=== PATIENT | male | born 1960 | race Caucasian/White ===

== ENCOUNTER 2019-09-01 16:42 | Emergency (ER) | payer SELFPAY ==
[2019-09-01 16:42] VITALS: BP 160/90; PULSE 76; RESP 16; TEMP 36.4; O2SAT 99
--- NOTE | 2019-09-01 17:39 | ED_ITS ---
HPI - Skin/Abscess/Foreign Bdy General Chief complaint: Skin/Abscess/Foreign Body Stated complaint: abscess on back Time Seen by Provider: 09/01/19 16:55 Source: patient Mode of arrival: ambulatory Limitations: no limitations History of Present Illness HPI narrative: This is a 59 year old male that presents to the ER for cyst on his back x 5 weeks. Reports over the last 5 days it has become painful. Denies fever, erythema or drainage. Related Data Home Medications Medication Instructions Recorded Confirmed No Home Medications 09/01/19 09/01/19 Allergies Allergy/AdvReac Type Severity Reaction Status Date / Time No Known Allergies Allergy Verified 09/01/19 16:54 Review of Systems Review of Systems: Narrative: CONSTITUTIONAL: Denies fever SKIN: Denies erythema All systems reviewed & are unremarkable except as noted in HPI and below PMFSH Past Medical History Medical History (Updated 09/01/19 @ 19:43 by Jane Borjas PA-C) History of gastroesophageal reflux (GERD) History of hyperlipidemia History of sleep apnea Exam Narrative: Exam Narrative: GENERAL: Well-appearing, well-nourished, and in no acute distress. HEAD: Normocephalic, atraumatic. EYES: EOMI. BACK: 3cm cyst with central fluctuance to the mid back, no erythema or warmth to the area. Mildly tender EXTREMITIES: Normal range of motion. No edema. SKIN: Warm, dry, no rash. NEURO: No focal deficits. Alert and oriented x3. PSYCH: Normal mood and affect Course Vital Signs Vital signs: Vital Signs Temperature 97.6 F 09/01/19 16:42 Pulse Rate 76 09/01/19 16:42 Respiratory Rate 16 09/01/19 16:42 Blood Pressure 160/90 H 09/01/19 16:42 Pulse Oximetry 99 09/01/19 16:42 Temperature 97.6 F 09/01/19 16:42 Pulse Rate 76 09/01/19 16:42 Respiratory Rate 16 09/01/19 16:42 Blood Pressure 160/90 H 09/01/19 16:42 Pulse Oximetry 99 09/01/19 16:42 MDM - Skin/Abscess/Foreign Bdy MDM Narrative Medical decision making narrative: Patient presents the emergency department for cyst that has been present on his back for 5 weeks. He is afebrile and nontoxic-appearing. No erythema or warmth over the cyst. There is some central fluctuance and it was mildly tender to palpation. I offered to drain the area. Patient left AMA before I was able to do procedure Critical Care Time Critical Care Time Critical Care Time: No Discharge Plan Discharge Clinical Impression: Cyst Patient Disposition: Left Against Medical Advice Condition: Stable Prescriptions: No Action No Home Medications RF: 0 Interventions: Discharge Disposition Last Done: 09/01/19 18:15 IV Stop Time Documented Last Done: 09/01/19 18:15 Follow-up/Referrals: PHYSICIAN,RN PROGRESSIVE CARE [Primary Care Provider] - Discharge Date/Time: 09/01/19 18:15
== END 2019-09-01 18:15 | disposition left against medical advice (07) ==
LOC: ANHED 17:26
PROVIDERS: Emergency Provider Emergency Medicine
DX: L72.3 Sebaceous cyst (principal); K21.9 Gastro-esophageal reflux disease without esophagitis; E78.5 Hyperlipidemia, unspecified; G47.30 Sleep apnea, unspecified
CPT/HCPCS: 99281

== ENCOUNTER 2023-07-03 19:40 | Emergency (ER) | payer OTHER, SELFPAY ==
--- NOTE | ~2023-07-03 | CT_ITS ---
EXAMINATION: CT brain wo con DATE: 07/03/2023 21:05 INDICATION: fall, hit head . TECHNIQUE: Computed tomography (CT) of the head was performed without intravenous contrast. The mA wa s adjusted according to patient size. Iterative reconstruction technique was employed. The dose-lengt h product was 681.00 mGy-cm. COMPARISON: None. FINDINGS: No acute intracranial hemorrhage or extra-axial fluid collection. No hydrocephalus, mass, or herniation. No acute ischemic infarct. Unremarkable dural venous sinus attenuation. No acute osseous abnormality. Mild left occipital scalp contusion, small laceration, with a skin stap le. Ethmoid mucosal thickening, the remaining aerated spaces are clear. Minimal intracranial atherosclerotic calcification IMPRESSION: No acute intracranial process. Reviewed, dictated and finalized at location [facility]. [facility]
[2023-07-03 20:36] VITALS: BP 155/87; PULSE 71; RESP 18; TEMP 36.3; O2SAT 98
--- NOTE | 2023-07-03 20:40 | ED.WOUNDLAC ---
HPI - Wound/Laceration General Chief Complaint: Wound/Laceration Stated Complaint: Fall, slipped and hit head, No LOC, no blood thinn Time Seen by Provider: 07/03/23 20:42 History of Present Illness HPI narrative: 63 y/o M reports for evaluation for a head injury that occurred a couple hours ago. Pt states he was walking on a hill, slipped and landed backwards. Hit the back of his head on concrete. Denies LOC, neck pain, back pain, extremity injury. Tetanus not up to date. Reports some nausea after injury that has since resolved. Denies vomiting, seizures. Related Data Home Medications Medication Instructions Recorded Confirmed No Home Medications 09/01/19 09/01/19 Allergies Allergy/AdvReac Type Severity Reaction Status Date / Time No Known Allergies Allergy Verified 09/01/19 16:54 Review of Systems Review of Systems: CONSTITUTIONAL: Denies fever, chills, or sweats. EYES: Denies visual changes, redness, or discharge. ENT: Denies rhinorrhea, congestion, sore throat, or otalgia. CARDIOVASCULAR: Denies chest pain, palpitations, or edema. RESPIRATORY: Denies cough or dyspnea. GASTROINTESTINAL: Denies abdominal pain, nausea, vomiting, or diarrhea. GENITOURINARY: Denies dysuria or hematuria. SKIN: See HPI. MUSCULOSKELETAL: Denies back pain, joint pain, or myalgia. NEUROLOGIC: See HPI PSYCHIATRIC: Denies anxiety or depression. [facility] Past Medical History Medical History History of gastroesophageal reflux (GERD) History of hyperlipidemia History of sleep apnea Exam Narrative: GENERAL: Well-appearing, well-nourished, and in no acute distress. HEAD: 0.5 cm laceration to the posterior scalp, bleeding controlled. No surrounding hematoma, ecchymosis. No scalp crepitus, step-offs or deformities. EYES: PERRLA and EOMI. ENT: Nares clear, no rhinorrhea or epistaxis. Mucous membranes moist. NECK: No midline cervical spinous tenderness, step-offs or deformities. BACK: No midline thoracolumbar spinous tenderness, step-offs or deformities. CHEST: Clear to auscultation. No respiratory distress. HEART: Regular rate and rhythm. No murmur heard. Normal peripheral pulses. ABDOMEN: Soft, nontender, nondistended, normal active bowel sounds. EXTREMITIES: Normal range of motion. No edema. SKIN: Warm, dry, no rash. NEURO: No focal deficits. Alert and oriented x3. Cranial nerves 2-12 intact. Strength 5/5 in BUE and BLE. Sensation intact throughout. Normal [id number]. No pronator drift. Course Vital Signs Vital signs: Vital Signs Temperature 97.3 F L 07/03/23 20:36 Pulse Rate 71 07/03/23 20:36 Respiratory Rate 18 07/03/23 20:36 Blood Pressure 155/87 H 07/03/23 20:36 Pulse Oximetry 98 07/03/23 20:36 Oxygen Delivery Room Air 07/03/23 20:36 Temperature 97.3 F L 07/03/23 20:36 Pulse Rate 71 07/03/23 20:36 Respiratory Rate 18 07/03/23 20:36 Blood Pressure 155/87 H 07/03/23 20:36 Pulse Oximetry 98 07/03/23 20:36 Oxygen Delivery Room Air 07/03/23 20:36 Procedures Laceration Laceration 1: Date: 07/03/23 Time: 20:46 Site: scalp Size (cm): 0.5 Description: linear Depth: simple, single layer Local Anesthetic: none Pre-repair: wound explored, irrigated and irrigated extensively ====== Skin Level ====== Skin layer closed with: sarah Number of sutures: 1 ====== Subcutaneous Layer ====== ====== Muscle Layer ====== ====== Tendon Layer ====== MDM - Wound/Laceration [facility] Narrative Medical decision making narrative: 63 y/o M reports for evaluation after a mechanical fall and head injury. See HPI for further history. Vitals significant for elevated blood pressure 155/87, otherwise unremarkable. Patient is neurovascularly intact. Exam is significant for the above. Small laceration irrigated with normal saline and closed with 1 st
[2023-07-03] MEDS: TETANUS,DIPHTHERIA,AC PERTUSSIS ADULT (0.5 ML) BOOSTRIX IM (21:55)
[2023-07-03 21:57] VITALS: BP 185/100; PULSE 80; RESP 16; TEMP 36.4; O2SAT 99
== END 2023-07-03 21:57 | disposition home or self-care (01) ==
LOC: ANHED 21:50
PROVIDERS: Emergency Provider Physician Assistant
DX: S01.01XA Laceration without foreign body of scalp, initial encounter (principal); Z23 Encounter for immunization; E78.5 Hyperlipidemia, unspecified; K21.9 Gastro-esophageal reflux disease without esophagitis; G47.30 Sleep apnea, unspecified; W00.0XXA Fall on same level due to ice and snow, initial encounter
CPT/HCPCS: 12001; 70450; 90471; 90715; 99284